=== PATIENT | female | born 1985 | race Caucasian/White ===

== ENCOUNTER 2021-10-16 02:12 | Emergency (ER) | payer OTHER ==
[2021-10-16 02:41] LABS: RED BLOOD COUNT 4.66 M/UL (4.00-5.10); WHITE BLOOD COUNT 18.7 K/UL (4.5-11.0)
[2021-10-16 03:00] LABS: BUN/CREATININE RATIO 7 (0-10)
== END 2021-10-16 20:46 | disposition left against medical advice (07) ==
LOC: ER1 02:12
PROVIDERS: Family Medicine
DX: D25.9 Leiomyoma of uterus, unspecified (principal); I74.8 Embolism and thrombosis of other arteries; N92.0 Excessive and frequent menstruation with regular cycle; Z20.822 Contact with and (suspected) exposure to COVID-19; D64.9 Anemia, unspecified; F17.200 Nicotine dependence, unspecified, uncomplicated
CPT/HCPCS: 80053; 81001; 83540; 83550; 83605; 83690; 84703; 85025; 85610; 85730; 93005; 96374; 96375; 96376; 99283; C9113; J1644; J2270; J2405; Q9967; U0002

== ENCOUNTER 2022-03-17 13:28 | Emergency (ER) | payer OTHER ==
[2022-03-17 14:17] LABS: HEMOGLOBIN 8.9 gm/dl (12.3-15.3); RED BLOOD COUNT 4.85 M/UL (4.00-5.10); WHITE BLOOD COUNT 23.5 K/UL (4.5-11.0)
[2022-03-17 14:35] LABS: BUN/CREATININE RATIO 10 (0-10)
[2022-03-17] MEDS ORDERED: TRANEXAMIC ACI650 MG PO (20:03)
[2022-03-17] MEDS ORDERED: ZOFRAN 4 MG TAB4 MG PO (20:06)
[2022-03-18] MEDS ORDERED: ONDANSETRON HCL4 MG PO (12:35)
[2022-03-18] MEDS ORDERED: TRANEXAMIC ACI650 MG PO (12:36)
[2022-03-18] MEDS ORDERED: ASPIRIN EC81 MG PO (12:37)
== END 2022-03-17 20:33 | disposition home or self-care (01) ==
LOC: ER1 13:28
PROVIDERS: Emergency Medicine
DX: D25.0 Submucous leiomyoma of uterus (principal); Z90.49 Acquired absence of other specified parts of digestive tract; F17.210 Nicotine dependence, cigarettes, uncomplicated
CPT/HCPCS: 80053; 84703; 85025; 96374; 99284; J2405; Q9967

== ENCOUNTER 2022-03-18 05:45 | Observation (INO) | payer OTHER ==
[~2022-03-18] VITALS: Ht 162.6 cm; Wt 95.7 kg
[~2022-03-18 05:45] MED LIST: TRANEXAMIC ACI650 MG PO; ZOFRAN 4 MG TAB4 MG PO
[2022-03-18 06:38] LABS: HEMOGLOBIN 9.3 gm/dl (12.3-15.3); RED BLOOD COUNT 4.9 M/UL (4.00-5.10)
[2022-03-18 06:54] LABS: BUN/CREATININE RATIO 8 (0-10)
[2022-03-18] MEDS ORDERED: ONDANSETRON HCL4 MG PO (12:35)
[2022-03-18] MEDS ORDERED: TRANEXAMIC ACI650 MG PO (12:36)
[2022-03-18] MEDS ORDERED: ASPIRIN EC81 MG PO (12:37)
[2022-03-19 06:31] LABS: BUN/CREATININE RATIO 4 (0-10)
[2022-03-19 06:50] LABS: HEMOGLOBIN 7.1 gm/dl (12.3-15.3); RED BLOOD COUNT 3.76 M/UL (4.00-5.10); WHITE BLOOD COUNT 10.3 K/UL (4.5-11.0)
[2022-03-19] MEDS ORDERED: PERCOCET 7.5-31 EACH PO (11:55)
[2022-03-20 04:52] LABS: WHITE BLOOD COUNT 11.7 K/UL (4.5-11.0)
[2022-03-20 05:06] LABS: HEMOGLOBIN 10.1 gm/dl (12.3-15.3); RED BLOOD COUNT 4.68 M/UL (4.00-5.10)
[2022-03-20 05:09] LABS: BUN/CREATININE RATIO 4 (0-10)
[2022-03-20] MEDS ORDERED: AMOX TR-K CLV1 EAC4 PO (10:27)
[2022-03-20] MEDS ORDERED: MEDROXYPROGESTE10 MG PO (10:27)
[2022-03-20] MEDS ORDERED: METRONIDAZOLE500 MG PO (10:27)
== END 2022-03-20 13:40 | disposition home or self-care (01) ==
LOC: ER1 05:45 → CDU 10:32 → MED SURG 4 12:52
PROVIDERS: Obstetrics & Gynecology; Physician Assistant; Physician Assistant Medical; ADMIT Internal Medicine
DX: D25.0 Submucous leiomyoma of uterus (principal); N83.202 Unspecified ovarian cyst, left side; N83.201 Unspecified ovarian cyst, right side; R10.9 Unspecified abdominal pain; R11.2 Nausea with vomiting, unspecified; N93.9 Abnormal uterine and vaginal bleeding, unspecified; D62 Acute posthemorrhagic anemia; E87.6 Hypokalemia; E87.2 Acidosis; E86.0 Dehydration; F17.210 Nicotine dependence, cigarettes, uncomplicated; D72.829 Elevated white blood cell count, unspecified; Z20.822 Contact with and (suspected) exposure to COVID-19; Z79.82 Long term (current) use of aspirin; Z88.5 Allergy status to narcotic agent
CPT/HCPCS: 36415; 71045; 76830; 80048; 80053; 81001; 83605; 83735; 84132; 84703; 85025; 85027; 86850; 86900; 86901; 86920; 87040; 87086; 96374; 96375; 96376; 99285; G0378; J0295; J2270; J2405; J2543; J3370; J7040; J7070; P9016; U0002

== ENCOUNTER 2022-03-25 05:22 | Inpatient (IN) | payer OTHER ==
[~2022-03-25] VITALS: Ht 162.6 cm; Wt 92.1 kg
[~2022-03-25 05:22] MED LIST changes: +AMOX TR-K CLV1 EAC4 PO; +ASPIRIN EC81 MG PO; +MEDROXYPROGESTE10 MG PO; +METRONIDAZOLE500 MG PO; +ONDANSETRON HCL4 MG PO; +PERCOCET 7.5-31 EACH PO
[2022-03-25 06:37] LABS: HEMOGLOBIN 10.2 gm/dl (12.3-15.3); RED BLOOD COUNT 4.71 M/UL (4.00-5.10); WHITE BLOOD COUNT 8.8 K/UL (4.5-11.0)
[2022-03-25] MEDS ORDERED: COLACE 100MG C100 MG PO (09:25)
[2022-03-25] MEDS ORDERED: IBUPROFEN600 MG PO (09:25)
[2022-03-25] MEDS ORDERED: ENDOCET 10-3251 EACH PO (09:25)
[2022-03-25] MEDS ORDERED: ESTRACE 1 MG TAB1 MG PO (09:25)
[2022-03-26 03:14] LABS: HEMOGLOBIN 8.2 gm/dl (12.3-15.3)
== END 2022-03-26 12:48 | disposition home or self-care (01) | DRG 743 ==
LOC: OR 05:22 → M/S 05:22 → OR 10:29 → M/S 10:29 → EDSTATUS 12:45 → OR 12:45 → M/S 03-26 12:48
PROVIDERS: ADMIT Obstetrics & Gynecology
PROC: 0UT20ZZ Resection of Bilateral Ovaries, Open Approach (ICD-10-PCS; 2022-03-25)
PROC: 0UT90ZZ Resection of Uterus, Open Approach (ICD-10-PCS; principal; 2022-03-25 12:45)
PROC: 0UT70ZZ Resection of Bilateral Fallopian Tubes, Open Approach (ICD-10-PCS; 2022-03-25 12:45)
DX: D25.0 Submucous leiomyoma of uterus (principal); N72 Inflammatory disease of cervix uteri; N92.1 Excessive and frequent menstruation with irregular cycle; E66.01 Morbid (severe) obesity due to excess calories; Z82.5 Family history of asthma and other chronic lower respiratory diseases; Z88.5 Allergy status to narcotic agent; Z68.34 Body mass index [BMI] 34.0-34.9, adult; Z82.49 Family history of ischemic heart disease and other diseases of the circulatory system; Z82.0 Family history of epilepsy and other diseases of the nervous system; Z87.891 Personal history of nicotine dependence; Z90.49 Acquired absence of other specified parts of digestive tract
CPT/HCPCS: 81001; 84702; 85014; 85018; 85025; J0690; J1170; J2001; J2250; J2704; J2795; J3010